=== PATIENT | female | born 1965 | race Caucasian/White ===

== ENCOUNTER 2017-11-07 09:01 | Emergency (ER) | payer MEDICAID ==
[~2017-11-07] VITALS: Ht 165.1 cm; Wt 90.9 kg
[2017-11-07] MEDS ORDERED: LOSA25TA21 PO (09:53)
[2017-11-07 10:01] VITALS: BP 146/86
== END 2017-11-07 10:02 | disposition home or self-care (01) ==
LOC: ER 09:02
DX: I10 Essential (primary) hypertension (principal); Z85.89 Personal history of malignant neoplasm of other organs and systems; Z79.899 Other long term (current) drug therapy
CPT/HCPCS: 99283